=== PATIENT | female | born 1980 | race African-American/Black ===

== ENCOUNTER 2016-11-07 18:46 | Emergency (ER) | payer MEDICARE | END 2016-11-07 20:05 | disposition home or self-care (01) | LOC: NAV ERS 18:46 | DX: K02.9 Dental caries, unspecified (principal); K05.10 Chronic gingivitis, plaque induced; E10.9 Type 1 diabetes mellitus without complications; D64.9 Anemia, unspecified; Z79.4 Long term (current) use of insulin | CPT/HCPCS: 99282 ==

== ENCOUNTER 2016-12-26 22:57 | Emergency (ER) | payer MEDICARE | END 2016-12-27 00:50 | disposition home or self-care (01) | LOC: NAV ERS 22:57 | DX: E10.649 Type 1 diabetes mellitus with hypoglycemia without coma (principal); D64.9 Anemia, unspecified; Z79.4 Long term (current) use of insulin; Z79.899 Other long term (current) drug therapy | CPT/HCPCS: 36416; 99284 ==

== ENCOUNTER 2017-03-05 19:25 | Emergency (ER) | payer MEDICARE ==
[2017-03-05] MEDS ORDERED: Sodium Chloride 0.9% 1,000 ML ONE ×2 (19:56→20:54)
[2017-03-05 20:25] LABS: Bilirubin Negative (Negative); Blood, Urine Large (Negative); Glucose, Urine (Dipstick) >=1000 mg/dL (Negative); Leukocyte Small (Negative); Nitrite Negative (Negative); Protein, Urine (Dipstick) > or equal to 300 mg/dL (Neg-Trace); Urobilinogen 0.2 mg/dL (0.2-1.0)
[2017-03-05 20:27] LABS: #Basophils 0.1 thou/uL (0.0-0.2); #Eosinphils 0.2 thou/uL (0.0-0.7); #Lymphocytes 2.6 thou/uL (1.20-3.40); #Monocytes 0.5 thou/uL (0.11-0.59); #Neutrophils 3.3 thou/uL (1.40-6.50); %Basophils 1.2 % (0.0-1.0); %Eosinophils 2.7 % (0.0-10.0); %Lymphocytes 38.6 % (21.0-51.0); %Monocytes 7.6 % (0.0-10.0); %Neutrophils 49.9 % (42.0-75.0); Hemoglobin 9.7 g/dL (12.0-16.0); Mean Corpuscular HGB CONC 32.1 g/dL (32.0-36.0); Mean Corpuscular Volume 90.2 fl (81.0-99.0); Mean Platelet Volume 8.7 fL (7.4-10.4); Platelet Count 250 thou/uL (130-400); RBC Distribution Width 11.7 % (11.5-14.5); Red Blood Cell (RBC) Count 3.36 mill/uL (4.20-5.40); White Blood Cell (WBC) Count 6.6 thou/uL (4.8-10.8)
[2017-03-05 20:31] LABS: Clarity Hazy (Clear)
[2017-03-05 20:39] LABS: ALT (SGPT) 14 U/L (8-55); AST (SGOT) 13 U/L (5-34); Albumin 3.4 g/dL (3.5-5.0); Alkaline Phosphatase 107 U/L (40-150); Anion Gap 16 mmol/L (10-20); BUN (Urea Nitrogen) 45 mg/dL (7.0-18.7); Bilirubin, Total 0.3 mg/dL (0.2-1.2); Calc. Creatinine Clearance 0 mL/min (70-130); Calcium 9.3 mg/dL (7.8-10.44); Carbon Dioxide 18 mmol/L (22-29); Chloride 96 mmol/L (98-107); Estimated GFR-MDRD 23; Globulin 3.9 g/dL (2.4-3.5); Potassium 4.8 mmol/L (3.5-5.1); Protein, Total 7.3 g/dL (6.0-8.3); Sodium 125 mmol/L (136-145)
[2017-03-05 20:41] LABS: Bacteria/HPF 4+ HPF (None Seen); Squamous Epithelial 0-3 HPF (0-3); WBC/HPF 21-50 HPF (0-3)
[2017-03-05 20:51] LABS: Glucose 731 mg/dL (70-105)
[2017-03-05] MEDS ORDERED: cefTRIAXone\\ROCEPHIN 1 GM VIAL ONE (20:57)
[2017-03-05] MEDS ORDERED: Sodium Chloride 0.9% 100 ML ONE (20:57)
[2017-03-05] MEDS ORDERED: Insulin Regular 300 UNITS/3 ML VIAL ONE (21:11)
[2017-03-05 23:17] LABS: Anion Gap 16 mmol/L (10-20); BUN (Urea Nitrogen) 41 mg/dL (7.0-18.7); Calc. Creatinine Clearance 0 mL/min (70-130); Calcium 8.4 mg/dL (7.8-10.44); Carbon Dioxide 18 mmol/L (22-29); Chloride 104 mmol/L (98-107); Estimated GFR-MDRD 32; Glucose 345 mg/dL (70-105); Potassium 3.9 mmol/L (3.5-5.1); Sodium 134 mmol/L (136-145)
== END 2017-03-06 00:13 | disposition short-term general hospital (02) ==
LOC: NAV ERS 19:25
DX: E10.10 Type 1 diabetes mellitus with ketoacidosis without coma (principal); N39.0 Urinary tract infection, site not specified; D64.9 Anemia, unspecified; Z79.899 Other long term (current) drug therapy
CPT/HCPCS: 36415; 80053; 81003; 81015; 82010; 85025; 96361; 96365; 96375; J0696; J1815; J7050

== ENCOUNTER 2017-03-25 09:17 | Emergency (ER) | payer MEDICARE, MEDICAID ==
[2017-03-25 09:54] LABS: Bilirubin Negative (Negative); Blood, Urine Moderate (Negative); Clarity Cloudy (Clear); Glucose, Urine (Dipstick) 500 mg/dL (Negative); Leukocyte Moderate (Negative); Nitrite Negative (Negative); Protein, Urine (Dipstick) > or equal to 300 mg/dL (Neg-Trace); Urobilinogen 0.2 mg/dL (0.2-1.0); pH, Urine 5.5 (5.0-9.0)
[2017-03-25 09:56] LABS: Pregnancy Test - Urine (BHCG) Negative (NEGATIVE); Pregu Control Background? CLEAR/WHITE (CLR/WHITE); Pregu Control Bar Appear? YES (CONTROL BAR)
[2017-03-25 10:01] LABS: Bacteria/HPF 3+ HPF (None Seen); RBC/HPF 0-3 HPF (0-3); Squamous Epithelial 0-3 HPF (0-3)
[2017-03-25 10:03] LABS: #Basophils 0.1 thou/uL (0.0-0.2); #Eosinphils 0.1 thou/uL (0.0-0.7); #Lymphocytes 1.4 thou/uL (1.20-3.40); #Monocytes 0.3 thou/uL (0.11-0.59); #Neutrophils 3.6 thou/uL (1.40-6.50); %Basophils 1.2 % (0.0-1.0); %Eosinophils 2.6 % (0.0-10.0); %Lymphocytes 25.1 % (21.0-51.0); %Neutrophils 65.1 % (42.0-75.0); Hemoglobin 8.3 g/dL (12.0-16.0); Mean Corpuscular HGB CONC 31.5 g/dL (32.0-36.0); Mean Corpuscular Hemoglobin 29.2 pg (27.0-31.0); Mean Corpuscular Volume 92.8 fl (81.0-99.0); Mean Platelet Volume 7.3 fL (7.4-10.4); Platelet Count 253 thou/uL (130-400); RBC Distribution Width 12.7 % (11.5-14.5); Red Blood Cell (RBC) Count 2.83 mill/uL (4.20-5.40); White Blood Cell (WBC) Count 5.6 thou/uL (4.8-10.8)
[2017-03-25 10:23] LABS: CKMB 3.7 ng/mL (0-6.6); Troponin I 0.025 ng/mL (< 0.028)
--- NOTE | 2017-03-25 11:04 | RAD ---
TWO VIEWS OF THE CHEST: Date: 03-25-17 Comparison: 03-04-15 History: Swelling and tightness of the upper abdomen. FINDINGS: There is gaseous distention of the stomach. Debris is seen within the stomach as well. There is no p neumothorax, pleural fluid, focal consolidation or alveolar edema. IMPRESSION: Gaseous distention of the stomach with gastric debris noted. No radiographic evidence of acute cardi opulmonary disease. POS: [facility]
== END 2017-03-25 10:30 | disposition home or self-care (01) ==
LOC: NAV ERS 09:17
DX: E10.65 Type 1 diabetes mellitus with hyperglycemia (principal); N39.0 Urinary tract infection, site not specified; R00.0 Tachycardia, unspecified; D64.9 Anemia, unspecified; Z79.899 Other long term (current) drug therapy
CPT/HCPCS: 36415; 36416; 71020; 81003; 81015; 81025; 82553; 84484; 85025; 87077; 87086; 87186; 93005; 94760

== ENCOUNTER 2017-04-03 12:23 | Emergency (ER) | payer MEDICARE, MEDICAID ==
[2017-04-03] MEDS ORDERED: Ondansetron ODT 4 MG TAB ONE (12:45)
[2017-04-03] MEDS ORDERED: Sodium Chloride 0.9% 1,000 ML ONE ×2 (12:48→14:12)
[2017-04-03] MEDS ORDERED: Ondansetron HCl/PF 4 MG/2 ML Vial ONE (13:25)
[2017-04-03] MEDS ORDERED: Fentanyl 100 MCG/2 ML VIAL ONE (13:25)
[2017-04-03 13:32] LABS: #Eosinphils 0.2 thou/uL (0.0-0.7); #Lymphocytes 1.4 thou/uL (1.20-3.40); #Monocytes 0.4 thou/uL (0.11-0.59); #Neutrophils 4.8 thou/uL (1.40-6.50); %Basophils 0.5 % (0.0-1.0); %Eosinophils 2.2 % (0.0-10.0); %Lymphocytes 20.9 % (21.0-51.0); %Monocytes 6.3 % (0.0-10.0); %Neutrophils 70.1 % (42.0-75.0); Hemoglobin 7.4 g/dL (12.0-16.0); Mean Corpuscular HGB CONC 30.6 g/dL (32.0-36.0); Mean Corpuscular Hemoglobin 28.2 pg (27.0-31.0); Mean Corpuscular Volume 92.2 fl (81.0-99.0); Mean Platelet Volume 6.2 fL (7.4-10.4); Platelet Count 259 thou/uL (130-400); RBC Distribution Width 13.4 % (11.5-14.5); Red Blood Cell (RBC) Count 2.63 mill/uL (4.20-5.40); White Blood Cell (WBC) Count 6.8 thou/uL (4.8-10.8)
[2017-04-03 13:51] LABS: ALT (SGPT) 55 U/L (8-55); AST (SGOT) 52 U/L (5-34); Albumin 3.2 g/dL (3.5-5.0); Alkaline Phosphatase 107 U/L (40-150); Anion Gap 12 mmol/L (10-20); BUN (Urea Nitrogen) 50 mg/dL (7.0-18.7); Bilirubin, Total 0.2 mg/dL (0.2-1.2); Calc. Creatinine Clearance 0 mL/min (70-130); Carbon Dioxide 25 mmol/L (22-29); Chloride 108 mmol/L (98-107); Estimated GFR-MDRD 40; Globulin 3.5 g/dL (2.4-3.5); Glucose 145 mg/dL (70-105); Lipase 19 U/L (8-78); Magnesium 2.2 mg/dL (1.6-2.6); Protein, Total 6.7 g/dL (6.0-8.3); Sodium 139 mmol/L (136-145)
[2017-04-03] MEDS ORDERED: Promethazine HCl 25 MG/ML VIAL ONE (13:51)
[2017-04-03 13:57] LABS: BHCG - Serum Negative (NEGATIVE); Pregs Control Bar Appear? YES (CONTROL BAR)
[2017-04-03 13:59] LABS: CKMB 4.7 ng/mL (0-6.6)
[2017-04-03] MEDS ORDERED: Dextrose 50% Abboject 50 ML SYRINGE ONE (14:10)
[2017-04-03] MEDS ORDERED: Insulin Regular 300 UNITS/3 ML VIAL ONE (14:10)
[2017-04-03 14:19] LABS: Troponin I 0.601 ng/mL (< 0.028)
--- NOTE | 2017-04-03 16:04 | RAD ---
CHEST ONE VIEW 04/03/17 HISTORY: Difficulty breathing. COMPARISON: Chest two view 03/25/17. FINDINGS: There are numerous interstitial opacities throughout the lungs. There is right middle lobe and lower lobe opacity. No pneumothorax. Layering effusions. IMPRESSION: Layering effusions with diffuse air space opacities concern for multifocal pneumonia. Pulmonary heather a is also within the differential as well as ARDS and hemorrhage. Followup recommended. POS: [facility]
--- NOTE | 2017-04-03 16:18 | CT ---
CT ABDOMEN WITH IV CONTRAST CT PELVIS WITH IV CONTRAST: DATE: 04/03/17. HISTORY: Nausea and vomiting. COMPARISON: Noncontrasted CT abdomen and pelvis on 04/27/13. FINDINGS: There are moderately large bilateral pleural effusions and associated passive atelectasis greater on the right. There are also perihilar parenchymal opacities bilaterally suggesting bilateral pneumon ia. Contrast is seen in the distal esophagus which may be related to gastroesophageal reflux. There is minimal periportal edema seen within the liver which may be related to volume status. The liver is otherwise normal in appearance. The spleen, pancreas, bilateral adrenal glands, kidneys, urinary bladder, and uterus demonstrate a n ormal CT appearance. There are low-density structures seen in the left adnexal region probably related to left ovarian cy sts, the largest measuring approximately 2.5 cm. Right adnexal structures have a normal CT appearan ce. There is a small amount of free fluid seen in the cul-de-sac. Minimal vascular calcifications are seen in the abdominal aorta. A moderate amount of retained fecal material is seen throughout the colon. While the majority of th e appendix is difficult to delineate, portions of the visualized appendix do appear normal in calibe r on this exam. Loops of small bowel are normal in caliber. There is a nonspecific swirling appearance of the small bowel and mesenteric vessels as well as mese nteric fat in the upper pelvis just to the right of midline. However, there are no findings to sugg est a bowel obstruction proximal to this region and the exact etiology for this structure is uncerta in. This could potentially be related to internal hernia, but, again, there is no evidence of a bow el obstruction. There is mild subcutaneous edema seen diffusely throughout the soft tissues. A small amount of free fluid is seen in the region of the roro hepatis. IMPRESSION: 1. Bilateral pneumonia. Atypical pneumonia cannot be excluded given bilateral interstitial and brock eolar opacities within the perihilar regions, partially imaged. Followup to complete resolution of t he bilateral pneumonia is recommended. 2. Moderate-sized bilateral pleural effusions. 3. A small amount of free fluid in the pelvis. 4. Probable left ovarian cyst. 5. Subcutaneous edema with findings likely related to anasarca. 6. Mild periportal edema which may be related to volume status. Correlation with liver function te sts may be helpful. 7. Swirling appearance of a loop of small bowel as well as mesenteric vessels in the right lower qu adrant and upper pelvis which is nonspecific, and there is no bowel obstruction. The findings could potentially be related to an internal hernia in this region. POS: [facility]
[2017-04-03] MEDS ORDERED: Azithromycin 500 MG VIAL ONE (16:38)
[2017-04-03] MEDS ORDERED: Sodium Chloride 0.9% 250 ML 250 ML ONE (16:39)
== END 2017-04-03 16:55 | disposition short-term general hospital (02) ==
LOC: NAV ERS 12:23
DX: J18.9 Pneumonia, unspecified organism (principal); D64.9 Anemia, unspecified; E87.5 Hyperkalemia; K21.9 Gastro-esophageal reflux disease without esophagitis; N28.9 Disorder of kidney and ureter, unspecified; I10 Essential (primary) hypertension; E10.39 Type 1 diabetes mellitus with other diabetic ophthalmic complication; H40.9 Unspecified glaucoma; Z79.899 Other long term (current) drug therapy
CPT/HCPCS: 36416; 71010; 74177; 80053; 82553; 83605; 83690; 83735; 83880; 84484; 84703; 85025; 87040; 93005; 94760; 96361; 96374; 96375; 99292; J0456; J1815; J2405; J2550; J3010; J7050; Q0162

== ENCOUNTER 2017-06-03 13:49 | Emergency (ER) | payer MEDICARE, MEDICAID ==
[2017-06-03] MEDS ORDERED: Metoprolol Tartrate 5 MG/5 ML VIAL ONE (14:34)
[2017-06-03 14:52] LABS: #Eosinphils 0.2 thou/uL (0.0-0.7); #Lymphocytes 1.4 thou/uL (1.20-3.40); #Monocytes 0.4 thou/uL (0.11-0.59); #Neutrophils 3.1 thou/uL (1.40-6.50); %Basophils 0.8 % (0.0-1.0); %Eosinophils 4.1 % (0.0-10.0); %Monocytes 8.4 % (0.0-10.0); %Neutrophils 60.7 % (42.0-75.0); Hemoglobin 7.7 g/dL (12.0-16.0); Mean Corpuscular HGB CONC 31.4 g/dL (32.0-36.0); Mean Corpuscular Hemoglobin 29.8 pg (27.0-31.0); Mean Platelet Volume 7.5 fL (7.4-10.4); Platelet Count 228 thou/uL (130-400); RBC Distribution Width 15.1 % (11.5-14.5); Red Blood Cell (RBC) Count 2.57 mill/uL (4.20-5.40); White Blood Cell (WBC) Count 5.2 thou/uL (4.8-10.8)
[2017-06-03 14:56] LABS: ALT (SGPT) 49 U/L (8-55); AST (SGOT) 22 U/L (5-34); Albumin 3.1 g/dL (3.5-5.0); Alkaline Phosphatase 124 U/L (40-150); Anion Gap 11 mmol/L (10-20); BUN (Urea Nitrogen) 36 mg/dL (7.0-18.7); Bilirubin, Total 0.2 mg/dL (0.2-1.2); CK (CPK) 95 U/L (29-168); Calc. Creatinine Clearance 0 mL/min (70-130); Calcium 8.6 mg/dL (7.8-10.44); Carbon Dioxide 20 mmol/L (22-29); Chloride 115 mmol/L (98-107); Estimated GFR-MDRD 40; Globulin 2.7 g/dL (2.4-3.5); Glucose 98 mg/dL (70-105); Protein, Total 5.8 g/dL (6.0-8.3); Sodium 141 mmol/L (136-145)
[2017-06-03 14:57] LABS: CKMB 4.6 ng/mL (0-6.6); Troponin I 0.016 ng/mL (< 0.028)
--- NOTE | 2017-06-03 15:03 | RAD ---
ONE VIEW CHEST: History: Cough and bilateral lower extremity swelling. Comparison: 04-19-17 FINDINGS: Sternotomy wires. Normal cardiac silhouette. The pulmonary vessels and hilum are normal. Costophreni c angles are clear. No masses or consolidation. No pneumothorax or osseous abnormality. IMPRESSION: No acute cardiopulmonary process. POS: [facility]
[2017-06-03] MEDS ORDERED: Furosemide 40 MG/4 ML VIAL ONE (15:33)
== END 2017-06-03 15:55 | disposition home or self-care (01) ==
LOC: NAV ERS 13:49
DX: I11.0 Hypertensive heart disease with heart failure (principal); I50.9 Heart failure, unspecified; K21.9 Gastro-esophageal reflux disease without esophagitis; E10.9 Type 1 diabetes mellitus without complications; D64.9 Anemia, unspecified; Z79.899 Other long term (current) drug therapy; Z79.82 Long term (current) use of aspirin
CPT/HCPCS: 36416; 71010; 80053; 82550; 82553; 83880; 84484; 85025; 93005; 96374; 96375; 36415-59; J0360; J1940

== ENCOUNTER 2017-07-11 09:34 | Emergency (ER) | payer MEDICARE, MEDICAID ==
[2017-07-11] MEDS ORDERED: Albuterol Sulfate 2.5 mg/3 ml Neb ONE (10:30)
[2017-07-11 10:32] LABS: #Basophils 0.1 thou/uL (0.0-0.2); #Eosinphils 0.5 thou/uL (0.0-0.7); #Lymphocytes 1.7 thou/uL (1.20-3.40); #Monocytes 0.4 thou/uL (0.11-0.59); #Neutrophils 4.6 thou/uL (1.40-6.50); %Basophils 1.1 % (0.0-1.0); %Eosinophils 6.3 % (0.0-10.0); %Lymphocytes 23.6 % (21.0-51.0); %Monocytes 5.5 % (0.0-10.0); %Neutrophils 63.5 % (42.0-75.0); Hemoglobin 9.2 g/dL (12.0-16.0); Mean Corpuscular HGB CONC 30.6 g/dL (32.0-36.0); Mean Corpuscular Volume 94.6 fl (81.0-99.0); Mean Platelet Volume 6.8 fL (7.4-10.4); Platelet Count 283 thou/uL (130-400); RBC Distribution Width 14.7 % (11.5-14.5); Red Blood Cell (RBC) Count 3.17 mill/uL (4.20-5.40); White Blood Cell (WBC) Count 7.3 thou/uL (4.8-10.8)
[2017-07-11 10:45] LABS: ALT (SGPT) 18 U/L (8-55); AST (SGOT) 14 U/L (5-34); Albumin 2.1 g/dL (3.5-5.0); Alkaline Phosphatase 104 U/L (40-150); Anion Gap 12 mmol/L (10-20); BUN (Urea Nitrogen) 31 mg/dL (7.0-18.7); Bilirubin, Total 0.3 mg/dL (0.2-1.2); Calc. Creatinine Clearance 0 mL/min (70-130); Calcium 8.2 mg/dL (7.8-10.44); Carbon Dioxide 17 mmol/L (22-29); Chloride 111 mmol/L (98-107); Estimated GFR-MDRD 22; Globulin 3.3 g/dL (2.4-3.5); Glucose 330 mg/dL (70-105); Potassium 4.1 mmol/L (3.5-5.1); Protein, Total 5.4 g/dL (6.0-8.3); Sodium 136 mmol/L (136-145)
[2017-07-11 10:46] LABS: Troponin I 0.018 ng/mL (< 0.028)
--- NOTE | 2017-07-11 11:20 | RAD ---
PORTABLE SITTING AP CHEST RADIOGRAPH: DATE: 07/11/17. COMPARISON: 06/03/17. HISTORY: Cough and cold symptoms. FINDINGS: Midline sternotomy wires are noted, stable. There is no pneumothorax, pleural fluid, lobar consolida tion, or alveolar edema. IMPRESSION: No acute findings. POS: [facility]
[2017-07-11] MEDS ORDERED: Furosemide 40 MG TAB ONE (12:21)
== END 2017-07-11 12:25 | disposition home or self-care (01) ==
LOC: NAV ERS 09:34
DX: J98.01 Acute bronchospasm (principal); K21.9 Gastro-esophageal reflux disease without esophagitis; I10 Essential (primary) hypertension; E10.39 Type 1 diabetes mellitus with other diabetic ophthalmic complication; H40.9 Unspecified glaucoma; D64.9 Anemia, unspecified; Z79.82 Long term (current) use of aspirin; Z79.899 Other long term (current) drug therapy
CPT/HCPCS: 71010; 80053; 83880; 84484; 85025; 85379; 85730; 93005; 94640; J7611

== ENCOUNTER 2017-10-01 10:11 | Emergency (ER) | payer MEDICARE, MEDICAID ==
[~2017-10-01 10:11] MED LIST: Dextrose 50% Abboject 50 ML SYRINGE ONE
[2017-10-01] MEDS ORDERED: Dextrose 50% Abboject 50 ML SYRINGE ONE (10:32)
[2017-10-01 10:46] LABS: #Basophils 0.1 thou/uL (0.0-0.2); #Lymphocytes 1.3 thou/uL (1.20-3.40); #Monocytes 0.4 thou/uL (0.11-0.59); #Neutrophils 2.5 thou/uL (1.40-6.50); %Basophils 1.2 % (0.0-1.0); %Eosinophils 0.9 % (0.0-10.0); %Lymphocytes 29.5 % (21.0-51.0); %Monocytes 9.6 % (0.0-10.0); %Neutrophils 58.8 % (42.0-75.0); Hemoglobin 10.2 g/dL (12.0-16.0); Mean Corpuscular HGB CONC 31.4 g/dL (32.0-36.0); Mean Platelet Volume 8.6 fL (7.4-10.4); Platelet Count 276 thou/uL (130-400); RBC Distribution Width 17.5 % (11.5-14.5); Red Blood Cell (RBC) Count 3.76 mill/uL (4.20-5.40); White Blood Cell (WBC) Count 4.3 thou/uL (4.8-10.8)
[2017-10-01 10:48] LABS: Base Excess 4.5 mEq/L (-2 - +2); Hemoglobin (Hb) 9.9 g/dL (11.7-15.5); pH (venous) 7.63 (7.35-7.45)
[2017-10-01 10:53] LABS: CKMB 3.3 ng/mL (0-6.6); Troponin I 0.172 ng/mL (< 0.028)
[2017-10-01 10:56] LABS: ALT (SGPT) 261 U/L (8-55); AST (SGOT) 57 U/L (5-34); Albumin 2.5 g/dL (3.5-5.0); Alkaline Phosphatase 170 U/L (40-150); Anion Gap 11 mmol/L (10-20); BUN (Urea Nitrogen) 37 mg/dL (7.0-18.7); Bilirubin, Total 0.3 mg/dL (0.2-1.2); Calc. Creatinine Clearance 0 mL/min (70-130); Calcium 8.2 mg/dL (7.8-10.44); Carbon Dioxide 28 mmol/L (22-29); Chloride 99 mmol/L (98-107); Estimated GFR-MDRD 15; Globulin 3.2 g/dL (2.4-3.5); Glucose 222 mg/dL (70-105); Potassium 3.4 mmol/L (3.5-5.1); Protein, Total 5.7 g/dL (6.0-8.3); Sodium 135 mmol/L (136-145)
--- NOTE | 2017-10-01 11:28 | RAD ---
PORTABLE CHEST 1 VIEW: DATE: 10/01/17. TIME: 10:58 a.m. HISTORY: Altered mental status. Patient on dialysis. FINDINGS: Comparison is made with the exam of 07/11/17. There are changes of median sternotomy. A right internal jugular double lumen venous catheter is see n with tips in the projection of the SVC. The heart size is normal. The lungs are expanded without focal areas of consolidation, pneumothorax, or pleural effusions. IMPRESSION: No radiographic evidence of acute cardiopulmonary process. POS: [facility]
[2017-10-01] MEDS ORDERED: Aspirin 325 MG TAB ONE (12:08)
== END 2017-10-01 12:25 | disposition short-term general hospital (02) ==
LOC: NAV ERS 10:11
DX: E10.649 Type 1 diabetes mellitus with hypoglycemia without coma (principal); R79.89 Other specified abnormal findings of blood chemistry; I12.0 Hypertensive chronic kidney disease with stage 5 chronic kidney disease or end stage renal disease; N18.6 End stage renal disease; K21.9 Gastro-esophageal reflux disease without esophagitis; D64.9 Anemia, unspecified; Z79.899 Other long term (current) drug therapy
CPT/HCPCS: 36416; 71045; 80053; 82553; 82805; 84484; 85025; 93005; 96374